=== PATIENT | female | born 1960 | race Caucasian/White ===

== ENCOUNTER 2016-12-25 08:29 | Day surgery (SDC) | payer OTHER ==
[2016-12-24 16:54] VITALS: BMI 32.4
[2016-12-25 10:02] VITALS: TEMP 97.6
[2016-12-25 10:51] VITALS: BP 106/66; PULSE 66
== END 2016-12-25 11:29 | disposition home or self-care (01) ==
LOC: JASU-ENDO 08:29
PROVIDERS: ATTEND Internal Medicine Gastroenterology
PROC: 0DJD8ZZ Inspection of Lower Intestinal Tract, Via Natural or Artificial Opening Endoscopic (ICD-10-PCS; principal; 2016-12-25 09:30)
DX: K92.1 Melena (principal)

== ENCOUNTER 2019-03-21 11:38 | Emergency (ER) | payer OTHER ==
[2019-03-21 11:54] VITALS: BP 135/82; PULSE 64; TEMP 97.9; BMI 32.8
--- NOTE | 2019-03-21 12:24 | PDOC ---
History of Present Illness - General Chief Complaint: Eye Problem Stated Complaint: RT EYE REDNESS Time Seen by Provider: 03/21/19 11:52 History Source: Patient - History of Present Illness Timing/Duration: reports: this morning Past History - Past Medical History Allergies/Adverse Reactions: Allergies Allergy/AdvReac Type Severity Reaction Status Date / Time No Known Allergies Allergy Verified 05/30/13 22:11 Home Medications: Ambulatory Orders Amlodipine Besylate [Norvasc -] 5 mg PO BID 02/08/13 Telmisartan [Micardis] 80 mg PO DAILY 02/08/13 Ascorbic Acid [Vitamin C] 500 mg PO DAILY 05/30/13 Cholecalciferol (Vitamin D3) [Vitamin D-3] 1,000 unit PO DAILY 05/30/13 Calcium Carbonate/Vitamin D3 [Calcium 600-Vit D3 500 Softgel] 1,000 mg PO DAILY 12/25/16 Fish Oil/Borage/Flax/Om3,6,9 1 [[place] 3-6-9 1,200 mg Softgel] 1,200 mg PO DAILY 12/25/16 COPD: No GI Disorders: Yes (CHRONIC CONSTIPATION, IBS) HTN: Yes Liver Disease: Yes ("fatty liver") - Immunization History Immunization Up to Date: Yes - Psycho Social/Smoking Cessation Hx Smoking History: Never smoked Have you smoked in the past 12 months: No Information on smoking cessation initiated: No Hx Alcohol Use: No Drug/Substance Use Hx: No Substance Use Type: None Hx Substance Use Treatment: No Review of Systems - Review of Systems HEENTM: No: Eye Pain, Blurred Vision, Tearing *Physical Exam - Vital Signs Last Vital Signs Temp Pulse Resp BP Pulse Ox 97.9 F 64 16 135/82 98 03/21/19 11:46 03/21/19 11:46 03/21/19 11:46 03/21/19 11:46 03/21/19 11:46 - Physical Exam General Appearance: Yes: Appropriately Dressed. No: Apparent Distress HEENT: positive: Normal Voice, Other (R eye w/ well demarcated flat erythema in the inferior conjunctiva c/w subconj hemorrhage). negative: Scleral Icterus (R) , Scleral Icterus (L) Respiratory/Chest: negative: Respiratory Distress Integumentary: positive: Dry, Warm Neurologic: positive: Fully Oriented, Alert, Normal Mood/Affect Medical Decision Making - Medical Decision Making 03/21/19 12:20 58-year-old female history of hypertension not on any blood thinners here with right conjunctival erythema that patient noticed at some point this a.m. No pain, itching, discharge, photophobia, foreign body sensation or visual changes. No trauma. No cough or vomiting see exam Sunconjunctival hemorrhage No trauma Not on blood thinners Dc w/ reassurance 03/21/19 12:23 Discharge - Discharge Information Problems reviewed: Yes Clinical Impression/Diagnosis: Subconjunctival hemorrhage Qualifiers: Laterality: right Qualified Code(s): H11.31 - Conjunctival hemorrhage, right eye Condition: Stable Disposition: HOME - Follow up/Referral Referrals: Mariana Brantley [Primary Care Provider] - - Patient Discharge Instructions Patient Printed Discharge Instructions: DI for Subconjunctival Hemorrhage - Post Discharge Activity
== END 2019-03-21 12:37 | disposition home or self-care (01) ==
LOC: JERFT 11:38
DX: H11.31 Conjunctival hemorrhage, right eye (principal); I10 Essential (primary) hypertension; Z87.19 Personal history of other diseases of the digestive system
CPT/HCPCS: 99281-25

== ENCOUNTER 2021-03-13 16:47 | Emergency (ER) | payer OTHER ==
[2021-03-13 17:04] VITALS: BP 143/84; PULSE 77; TEMP 97.8; BMI 30.4
[2021-03-13] MEDS ORDERED: IBUPROFEN 600 MG TABLET (FP) PO ONE ×2 (17:58→18:00)
== END 2021-03-13 18:03 | disposition home or self-care (01) ==
LOC: JERFT 16:47
DX: S62.616A Displaced fracture of proximal phalanx of right little finger, initial encounter for closed fracture (principal); W01.0XXA Fall on same level from slipping, tripping and stumbling without subsequent striking against object, initial encounter
CPT/HCPCS: 73110-TC-RT-FY; 73130-TC-RT-FY; 99283-25

== ENCOUNTER 2021-06-20 11:33 | Emergency (ER) | payer OTHER ==
[2021-06-20 11:46] VITALS: BMI 31.2
[2021-06-20] MEDS ORDERED: KETOROLAC TROMETHAMINE 15 MG/ML VIAL IVPUSH ONE (12:39)
[2021-06-20] MEDS ORDERED: LIDOCAINE 5% TOPICAL PATCH TP ONE (12:39)
[2021-06-20 13:10] LABS: BASO % 0.9 % (0-2.0); EOS % 0.6 % (0-4.5); HEMATOCRIT 40.1 % (32.4-45.2); HEMOGLOBIN 13.3 GM/dL (10.7-15.3); LYMPH % 15.7 % (8-40); MCH 29.1 pg (25.7-33.7); MCHC 33.2 g/dl (32.0-36.0); MEAN CELL VOLUME 87.8 fl (80-96); MEAN PLT VOLUME 8.8 fl (7.5-11.1); MONO % 9.5 % (3.8-10.2); NEUT % 73.3 % (42.8-82.8); PLATELET COUNT 232 10^3/uL (134-434); RBC 4.57 M/mm3 (3.60-5.2); RDW 13.6 % (11.6-15.6); WHITE BLOOD COUNT 4.8 K/mm3 (4.0-10.0)
[2021-06-20 13:21] LABS: INR 1.02 (0.83-1.09); PROTHROMBIN TIME (PATIENT) 11.7 SEC (9.7-13.0)
[2021-06-20 13:24] LABS: ACTIVATED PTT 34.7 SECONDS (25.2-36.5)
[2021-06-20 13:35] LABS: ALBUMIN 3.7 g/dl (3.4-5.0); CALCIUM 8.9 mg/dL (8.5-10.1); MAGNESIUM 2.3 mg/dL (1.8-2.4)
[2021-06-20] MEDS ORDERED: KETOROLAC TROMETHAMINE 15 MG/ML VIAL ONE (13:35)
[2021-06-20] MEDS ORDERED: LIDOCAINE 5% TOPICAL PATCH ONE (13:35)
[2021-06-20 13:37] LABS: CREATININE 0.5 mg/dL (0.55-1.3)
[2021-06-20 13:39] LABS: BILIRUBIN,TOTAL 0.4 mg/dL (0.2-1); TOT PROT 6.6 g/dl (6.4-8.2)
[2021-06-20 18:28] VITALS: BP 122/70; PULSE 64; TEMP 97.9
[2021-06-20] MEDS ORDERED: LIDOCAINE PATCH REMOVAL MC SCH (22:00)
== END 2021-06-20 18:28 ==
LOC: JER 11:33
PROC: 3E033GC Introduction of Other Therapeutic Substance into Peripheral Vein, Percutaneous Approach (ICD-10-PCS; principal; 2021-06-20)
DX: R07.89 Other chest pain (principal)
CPT/HCPCS: 36415; 71046-TC-FY; 80053; 83735; 84484; 85025; 85610; 85730; 93005; 93010; 99285-25

== ENCOUNTER 2021-07-30 09:28 | Emergency (ER) | payer OTHER ==
[2021-07-30 09:56] VITALS: BP 136/83; PULSE 74; TEMP 97.8; BMI 30.2
== END 2021-07-30 11:12 | disposition home or self-care (01) ==
LOC: JER 09:28
DX: J02.9 Acute pharyngitis, unspecified (principal)
CPT/HCPCS: 0241U-QW; 87070; 87077; 99283-25

== ENCOUNTER 2023-01-19 17:18 | Emergency (ER) | payer OTHER ==
[2023-01-19 17:25] VITALS: BMI 32.2
[2023-01-19] MEDS ORDERED: IBUPROFEN 400 MG TABLET (FP) PO ONE ×2 (18:26→18:35)
[2023-01-19 19:34] VITALS: BP 122/80; RESP 20; TEMP 98.5
[2023-01-19 19:44] VITALS: PULSE 85
== END 2023-01-19 20:01 | disposition home or self-care (01) ==
LOC: JERFT 17:18
DX: U07.1 COVID-19 (principal); M79.10 Myalgia, unspecified site; R51.9 Headache, unspecified; R09.81 Nasal congestion; R05.9 Cough, unspecified; R53.83 Other fatigue
CPT/HCPCS: 0241U-QW; 99283-25

== ENCOUNTER 2023-03-05 19:56 | Emergency (ER) | payer OTHER ==
[2023-03-05 20:01] VITALS: BP 125/76; PULSE 85; RESP 16; TEMP 98.2; BMI 32.2
== END 2023-03-05 23:05 | disposition home or self-care (01) ==
LOC: JERFT 19:56
DX: S00.552A Superficial foreign body of oral cavity, initial encounter (principal); X58.XXXA Exposure to other specified factors, initial encounter
CPT/HCPCS: 99282-25

== ENCOUNTER 2023-04-14 19:36 | Emergency (ER) | payer OTHER ==
[2023-04-14 19:47] VITALS: BP 127/81; PULSE 92; RESP 18; TEMP 98.3; BMI 31.7
[2023-04-14 20:58] LABS: HEMOGLOBIN 14.7 GM/dL (10.7-15.3); LYMPH % 3.4 % (8-40); MEAN CELL VOLUME 85.4 fl (80-96); RDW 13.7 % (11.6-15.6); WHITE BLOOD COUNT 6.5 K/mm3 (4.0-10.0)
[2023-04-14] MEDS ORDERED: MAG HYDROX/AL HYDROX/SIMETH 30 ML UNIT-DOSE CUP ONE (21:02)
[2023-04-14] MEDS ORDERED: ACETAMINOPHEN INJECTION 100 ML IVPB ONE (21:02)
[2023-04-14] MEDS ORDERED: ONDANSETRON 4 MG/2 ML VIAL ONE (21:03)
[2023-04-14] MEDS ORDERED: FAMOTIDINE 20 MG/50 ML IVPB 20 MG/50 ML MG IVPB ONE (21:03)
[2023-04-14] MEDS: SODIUM CHLORIDE 0.9% 500 ML INFUS.BAG IV ONE (21:14)
[2023-04-14] MEDS: ACETAMINOPHEN 1000 MG/100 ML BAG IVPB ONE (21:14)
[2023-04-14 21:15] LABS: BASO % 0.4 % (0-2.0); EOS % 1.2 % (0-4.5); HEMATOCRIT 42.9 % (32.4-45.2); MCH 29.3 pg (25.7-33.7); MCHC 34.3 g/dl (32.0-36.0); MEAN PLT VOLUME 8.7 fl (7.5-11.1); MONO % 4.8 % (3.8-10.2); NEUT % 90.2 % (42.8-82.8); PLATELET COUNT 213 10^3/uL (134-434); RBC 5.02 M/mm3 (3.60-5.2)
[2023-04-14] MEDS: MAG HYDROX/AL HYDROX/SIMETH 30 ML UNIT-DOSE CUP PO ONE (21:15)
[2023-04-14] MEDS: ONDANSETRON 4 MG/2 ML VIAL IVPUSH ONE (21:15)
[2023-04-14] MEDS: FAMOTIDINE 20 MG/50 ML IVPB 20 MG/50 ML MG IVPB ONE (21:15)
[2023-04-14 21:21] LABS: POTASSIUM 3.9 mmol/L (3.5-5.1)
[2023-04-14 21:23] LABS: CALCIUM 8.6 mg/dL (8.5-10.1)
[2023-04-14 21:24] LABS: ALBUMIN 3.7 g/dl (3.4-5.0); BLOOD UREA NITROGEN 18.1 mg/dL (7-18); MAGNESIUM 1.9 mg/dL (1.8-2.4)
[2023-04-14 21:27] LABS: CREATININE 0.6 mg/dL (0.55-1.3)
[2023-04-14 21:28] LABS: BILIRUBIN,TOTAL 0.7 mg/dL (0.2-1)
[2023-04-14 21:29] LABS: TOT PROT 6.9 g/dl (6.4-8.2)
== END 2023-04-14 22:27 | disposition home or self-care (01) ==
LOC: JER 19:36
PROC: 3E033NZ Introduction of Analgesics, Hypnotics, Sedatives into Peripheral Vein, Percutaneous Approach (ICD-10-PCS; principal; 2023-04-14)
DX: R19.7 Diarrhea, unspecified (principal); R10.33 Periumbilical pain; R11.0 Nausea; Z20.822 Contact with and (suspected) exposure to COVID-19
CPT/HCPCS: 0241U-QW; 36415; 80053; 83735; 85025; 99284-25; J0131